=== PATIENT | female | born 2000 | race Caucasian/White ===

== ENCOUNTER 2024-05-23 20:53 | Emergency (ER) | payer OTHER ==
[~2024-05-23] VITALS: Ht 170.2 cm; Wt 74.8 kg
== END 2024-05-23 22:29 | disposition home or self-care (01) ==
LOC: ER 20:53
DX: S61.012A Laceration without foreign body of left thumb without damage to nail, initial encounter (principal); W26.0XXA Contact with knife, initial encounter
CPT/HCPCS: 12001; 99282-25

== ENCOUNTER → 2024-08-27 | Outpatient (CLI) | payer OTHER ==
[2024-09-01 07:05] LABS: C. TRACHOMATIS BY TMA,THINPREP Negative (Negative); N. GONORRHOEAE BY TMA,THINPREP Negative (Negative); SPECIMEN SOURCE Vaginal
== END ==
LOC: LAB SHORT 11:35 → LAB 11:35
PROVIDERS: Family Medicine
DX: Z01.419 Encounter for gynecological examination (general) (routine) without abnormal findings (principal); Z11.3 Encounter for screening for infections with a predominantly sexual mode of transmission
CPT/HCPCS: 87491; 87591